=== PATIENT | male | born 1945 | race Caucasian/White ===

== ENCOUNTER 2022-10-26 09:48 | Emergency (ER) | payer OTHER, MEDICAID ==
[~2022-10-26] VITALS: Ht 162.6 cm; Wt 65.8 kg
[2022-10-26 09:54] VITALS: BP_SYST 130
[2022-10-26] MEDS ORDERED: NIRM1TAB PO (11:30)
[2022-10-26] MEDS ORDERED: GUAI100S14 PO (11:30)
[2022-10-26] MEDS ORDERED: ACET325T PO (11:30)
[2022-10-26] MEDS ORDERED: OSEL75CA PO (11:30)
[2022-10-26] MEDS ORDERED: IBUP-2018 PO (11:30)
== END 2022-10-26 11:43 | disposition home or self-care (01) ==
LOC: SED 09:48
DX: U07.1 COVID-19 (principal); J10.1 Influenza due to other identified influenza virus with other respiratory manifestations; R05.9 Cough, unspecified; R09.81 Nasal congestion; R50.9 Fever, unspecified; I10 Essential (primary) hypertension; Z79.899 Other long term (current) drug therapy
CPT/HCPCS: 36415; 71045; 99284

== ENCOUNTER 2024-01-08 20:14 | Emergency (ER) | payer OTHER ==
[~2024-01-08] VITALS: Ht 162.6 cm; Wt 54.4 kg
[~2024-01-08 20:14] MED LIST: ACET325T PO; GUAI100S14 PO; IBUP-2018 PO; NIRM1TAB PO; OSEL75CA PO
[2024-01-08 20:45] VITALS: BP_SYST 144; PULSE 78; RESP 16; TEMP 98.4; O2SAT 98
[2024-01-08] MEDS ORDERED: LIDOCAINE 1%, 20 ML MDV 20 ML ONE (22:15)
[2024-01-08] MEDS: LIDOCAINE 1% 10 MG/ML, 20 ML MDV INJ ONE (22:29)
[2024-01-08] MEDS: DIPHTH,PERTUSS(ACELL),TET VAC 0.5 ML VIAL (Tdap) I.M. ONE (22:40)
[2024-01-08 22:42] VITALS: BP_SYST 129; PULSE 73; RESP 22; TEMP 98; O2SAT 95
== END 2024-01-08 22:42 | disposition home or self-care (01) ==
LOC: SED 20:14
DX: L02.213 Cutaneous abscess of chest wall (principal); R22.2 Localized swelling, mass and lump, trunk; I10 Essential (primary) hypertension; Z79.899 Other long term (current) drug therapy
CPT/HCPCS: 90715; 99283; J2001